=== PATIENT | male | born 1990 | race Caucasian/White ===

== ENCOUNTER 2018-11-16 05:33 | Emergency (ER) | payer MEDICAID ==
[~2018-11-16] VITALS: Ht 182.9 cm; Wt 144.2 kg
[2018-11-16 05:39] VITALS: Ht 182.9 cm; Wt 144.2 kg
[2018-11-16 07:03] LABS: BASOPHIL % 0.3 % (0-2); PLATELET COUNT 252 x10^3mcL (130-400); RED CELL DISTRIBUTION WIDTH 13.9 % (11.5-14.5)
[2018-11-16 07:57] LABS: AMPHETAMINE QUAL UR NONE DETECTED (See below)
[2018-11-16 08:16] LABS: UA SPECIFIC GRAVITY >1.030 (1.005-1.035)
[2018-11-16 08:17] LABS: microscopic required? YES
[2018-11-16 08:18] LABS: urine erythrocyte 1+ (NEGATIVE)
[2018-11-16 09:16] LABS: CALCIUM 8.8 mg/dL (8.5-10.1); CARBON DIOXIDE 18.9 mmol/L (21-32); CHLORIDE SERUM 103 mmol/L (98-107); CREATININE SERUM 0.9 mg/dL (0.7-1.3); GFR1 > 60 mL/min; GLUCOSE SERUM 132 mg/dL (74-106); POTASSIUM SERUM 4.1 mmol/L (3.5-5.1); SODIUM SERUM 140 mmol/L (136-145)
[2018-11-16 09:24] LABS: ALBUMIN 3.7 g/dL (3.4-5.0); ALKALINE PHOSPHATASE 78 U/L (46-116); ALT/SGPT 79 U/L (16-63); AMYLASE 70 U/L (25-115); AST/SGOT 27 U/L (15-37); BILIRUBIN TOTAL 0.3 mg/dL (0.20-1.00); CHOLESTEROL 197 mg/dL (<200); LIPASE 102 IU/L (73-393); T4(THYROXINE) 6.6 ug/dL (4.7-13.3); TOTAL PROTEIN, SERUM 7.6 g/dL (6.4-8.2)
[2018-11-16 09:33] LABS: HDL CHOLESTEROL 33 mg/dL (40-60)
[2018-11-16 10:46] VITALS: BP 153/72
== END 2018-11-16 10:46 | disposition home or self-care (01) ==
LOC: ED 05:33
PROVIDERS: Emergency Medicine
DX: R07.89 Other chest pain (principal); M94.0 Chondrocostal junction syndrome [Tietze]; I10 Essential (primary) hypertension; E66.01 Morbid (severe) obesity due to excess calories; Z68.41 Body mass index [BMI] 40.0-44.9, adult; F17.210 Nicotine dependence, cigarettes, uncomplicated; Z98.890 Other specified postprocedural states; Z88.0 Allergy status to penicillin; Z88.1 Allergy status to other antibiotic agents; Z88.2 Allergy status to sulfonamides
CPT/HCPCS: 85378; 99406; G0480; J1885